=== PATIENT | male | born 1950 | race Caucasian/White ===

== ENCOUNTER 2021-11-18 07:20 | Outpatient (CLI) | payer BC, SELFPAY | END 2021-11-18 07:21 | disposition home or self-care (01) | LOC: OP CLINIC 07:21 | PROVIDERS: PCP Internal Medicine; Visit Provider Surgery | DX: Z12.11 Encounter for screening for malignant neoplasm of colon (principal); K63.5 Polyp of colon; K64.9 Unspecified hemorrhoids; K57.30 Diverticulosis of large intestine without perforation or abscess without bleeding | CPT/HCPCS: 45385; 88305; 99153; J2250; J3010 ==

== ENCOUNTER 2023-05-25 12:00 | Outpatient (CLI) | payer MEDICARE, BC, SELFPAY | END 2023-05-25 12:01 | disposition home or self-care (01) | LOC: NFLDREF 12:10 | PROVIDERS: PCP Internal Medicine; Visit Provider Internal Medicine | DX: Z13.1 Encounter for screening for diabetes mellitus (principal) | CPT/HCPCS: 82947 ==

== ENCOUNTER 2023-06-19 13:02 | Outpatient (CLI) | payer MEDICARE, BC, SELFPAY | END 2023-06-19 13:03 | disposition home or self-care (01) | LOC: RAD 13:04 | PROVIDERS: PCP Internal Medicine; Visit Provider Internal Medicine | DX: I77.810 Thoracic aortic ectasia (principal) | CPT/HCPCS: 93306 ==

== ENCOUNTER 2024-08-04 16:06 | Outpatient (CLI) | payer MEDICARE, BC, SELFPAY | END 2024-08-04 16:07 | disposition home or self-care (01) | LOC: NFLDREF 16:07 | PROVIDERS: PCP Internal Medicine; Visit Provider Internal Medicine | DX: Z12.5 Encounter for screening for malignant neoplasm of prostate (principal) | CPT/HCPCS: G0103 ==